=== PATIENT | male | born 1940 | race Caucasian/White ===

== ENCOUNTER → 2016-12-26 | Outpatient (CLI) | payer OTHER ==
[2016-12-26 17:13] LABS: CALCIUM 10.1 mg/dL (8.7-10.7); CHOL/HDL RATIO 4.82 RATIO (0-4.0); LDL CHOLESTEROL,CALCULATED 79.4 mg/dL; SERUM ALBUMIN 4.4 g/dL (3.5-4.8)
== END ==
LOC: LAB 08:44
PROVIDERS: ATTEND Physician Assistant Medical
DX: I10 Essential (primary) hypertension (principal); E03.9 Hypothyroidism, unspecified
CPT/HCPCS: 80053; 80061; 84443